=== PATIENT | female | born 1975 | race Two or more races ===

== ENCOUNTER 2016-10-05 11:18 | Inpatient (IN) | payer OTHER ==
[2016-10-05] MEDS ORDERED: CEFAZOLIN SODIUM 2 GRAM DUPLEX 2 G in Premix (D5W) 50 ml 1 EACH IV PRN (12:20)
--- NOTE | 2016-10-05 12:34 | PDOC36 ---
Provider Note Subject: cc: Admission H&P HPI: 40 y.o. year old CATHIE 10/15/2016, by Ultrasound at 38w4d. Presents for SROM at 1600 yesterday afternoon. REVIEW OF SYSTEMS GENERAL: No fever or headache EYES: No double or blurry vision. CARDIOVASCULAR: No chest pain. RESPIRATORY: No severe shortness of breath or cough. GASTROINTESTINAL: No nausea or vomiting or right upper quadrant pain. PSYCHIATRIC: No anxiety or depression. PROBLEMS Patient Active Problem List Diagnosis Date Noted False labor before 37 completed weeks of gestation 07/11/2016 Sinus congestion 07/04/2016 Round ligament pain 06/15/2016 Acute low back pain without sciatica 04/23/2016 Supervision of elderly multigravida in third trimester 04/02/2016 Maternal care due to low transverse uterine scar from previous delivery 04/02/2016 Joint pain 08/12/2015 Irritable bowel syndrome 07/23/2014 Pain in joint, lower leg 07/10/2013 BENITES (nonalcoholic steatohepatitis) 12/20/2011 Esophageal reflux 12/12/2011 Obesity, unspecified 02/21/2011 Adjustment disorder with anxious mood 10/10/2009 Restless legs syndrome (RLS) 10/10/2009 Depressive disorder, not elsewhere classified 08/29/2004 OB HISTORY #: 1, Date: 07/03/96, Sex: Male, Weight: 3.572 kg (7 lb 14 oz), GA: 40w0d, Delivery: , Low Transverse, Apgar1: None, Apgar5: None, Living: Yes, Comments: C/S because baby was too high #: 2, Date: 06/02/98, Sex: Male, Weight: 4.309 kg (9 lb 8 oz), GA: 40w0d, Delivery: Vaginal, Spontaneous Delivery, Apgar1: None, Apgar5: None, Living: Yes , Comments: None #: 3, Date: 05/27/01, Sex: Male, Weight: 4.026 kg (8 lb 14 oz), GA: 40w0d, Delivery: Vaginal, Spontaneous Delivery, Apgar1: None, Apgar5: None, Living: Yes , Comments: None #: 4, Date: 02/03/08, Sex: Male, Weight: 3.629 kg (8 lb), GA: 40w0d, Delivery: C -Section, Low Transverse, Apgar1: None, Apgar5: None, Living: Yes, Comments: None #: 5, Curent Dating: Based On CATHIE GA Dif Comments GA Cyc Lut BC Entered By Date Last Menstrual Period on 01/16/16 (Exact Date) 10/22/16 -1w0d Ary Neil MD 09/20/16 Ultrasound on 04/19/16 10/15/16 Working Dating 1 wk off, will change EDC. Diaz IUP. Breech. /Cardiac activity observed. Ant placenta. No previa. Fluid subjectively wnl. 14w3d Ary Neil MD 09/20/16 Ultrasound on 06/18/16 10/22/16 -1w0d Nl survey. Ant placenta. No previa. Nl fluid. 22w0d Ary Neil MD 09/20/16 Ultrasound on 09/20/16 10/19/16 -4d Vtx. Nl growth. Ant placenta. No previa. FANNIE wnl. 35w6d Ary Neil MD 09/20/16 Ultrasound on 10/04/16 10/15/16 Same FANNIE 13.28. Vtx 38w3d Ary Neil MD 10/04/16 PSH Past Surgical History Procedure Laterality Date Other surgical history Other [employer] Surgery: c/s Other surgical history Other past surgeries Appendectomy SOC HX reports that she has never smoked. She has never used smokeless tobacco. She reports that she does not drink alcohol or use illicit drugs. ALL Allergies Allergen Reactions Sumatriptan Imitrex (sumatriptan) Rxn:BREATHING DIFFICULTY; Note:swollen throat; Type:Drug ; Dt:03/10/2013; MEDICATIONS Current outpatient prescriptions: Cholecalciferol (VITAMIN D-3) 1000 UNITS capsule, Vitamin D3 (cholecalciferol ) 1000 intl units, oral capsule. OTC. 1 capsule Q DAY #100, 0 Refills. PAGE DOMINIC. Chronic, Disp: , Rfl: fluticasone (FLONASE) 50 MCG/ACT nasal spray, Administer 1 spray into each nostril once daily., Disp: 16 g, Rfl: 3 pantoprazole (PROTONIX) 40 MG EC tablet, Take 1 tablet (40 mg total) by mouth daily., Disp: 30 tablet, Rfl: 2 multivitamin (ULTRATABS) tablet, Take 1 tablet by mouth daily., Disp : 100 each, Rfl: 3 Pyridoxine HCl (VITAMIN B-6) 25 MG tablet, Take 1 tablet (25 mg total) by mouth 2 (two) times a day as needed (nausea)., Disp: 30 tablet, Rfl: 11 sertraline (ZOLOFT) 100 MG tablet, TAKE ONE TABLET BY MOUTH EVERY DAY, Disp: 90 tablet, Rfl: 1 SM ALLERGY RELIEF LORATADINE 10 MG tablet, TAKE ONE TABLET BY MOUTH EVERY DAY NEEDED, Disp: 100 tablet, Rfl: 6 SM SLEEP AID 25 MG tablet, TAKE 1 TABLET BY MOUTH AT BEDTIME NEEDED FOR NAUSEA, Disp: 30 tablet, Rfl: 3 Current facility-administered medications: sodium chloride 0.9 % infusion, 1,000 mL/hr, Intravenous, Continuous, Ary Neil MD, 1,000 mL/hr at 04/02/16 1608 PHYSICAL EXAMINATION VITAL SIGNS: T 98.7 BP 112/69 Estimated body mass index is 39.87 kg/(m^2) as calculated from the following: Height as of 10/04/16: 1.5 m (4' 11.06"). Weight as of 10/04/16: 89.7 kg (197 lb 12 oz). Total weight gain is 1.702 kg (3 lb 12 oz) FHT: 140's baseline, mod soy, + accels, no decels [place]: Intermittent SVE: deferred GENERAL: No distress CARDIOVASCULAR: Regular rate and rhythm, no murmur RESPIRATORY: Clear to auscultation bilaterally, respiratory effort is nonlabored at rest. GASTROINTESTINAL: Gravid no fundal tenderness LABS & STUDIES A+ Antibody- Rubella Immune Hep B- HIV- GC/Chlamydia- Trep- Hgb 10.9 GBS- not performed ASSESSMENT 40 y.o. year old CATHIE 10/15/2016, by Ultrasound at 38w4d presents for : SROM and planned rLTCS. PLAN Will proceed with repeat LTCS due to SROM. Discussed with patient risks for rLTCs including bleeding, infection and injury to surrounding structures including bladder, ureters, intestines, uterus, and vessels. patient is amenable to blood transfusion should this be necessary. All questions were responded to accordingly.
[2016-10-05] MEDS ORDERED: LACTATED RINGERS 1,000 ML ONE (12:49)
[2016-10-05] MEDS ORDERED: IV START KIT ONE (12:49)
[2016-10-05] MEDS ORDERED: CEFAZOLIN SODIUM 2 GRAM DUPLEX 50 ML IV ONE (12:50)
[2016-10-05] MEDS: LACTATED RINGERS 1,000 ML IV SCH ×3 (13:02→20:16)
[2016-10-05 14:01] VITALS: BMI 31.8
[2016-10-05 14:27] LABS: HEMATOCRIT 34.7 % (37.0-47.0); HEMOGLOBIN 11.1 gm/l (12.0-16.0); MEAN CELL VOLUME 88.7 fl (81.0-99.0); MEAN CORPUSCULAR HEMOGLOBIN 28.4 pg (27.0-31.0); RED CELL DISTRIBUTION WIDTH 16.6 % (11.5-14.5)
[2016-10-05] MEDS ORDERED: SPINAL PROCEDURAL TRAY 1 EACH ONE (16:01)
[2016-10-05] MEDS ORDERED: FENTANYL 100 MCG/2 ML VIAL ONE (16:06)
[2016-10-05] MEDS ORDERED: MORPHINE SULFATE (DURAMORPH) 1 MG/ML 10ML AMP ONE (16:06)
[2016-10-05] MEDS ORDERED: OXYTOCIN 10 UNITS/ML VIAL ONE (17:06)
[2016-10-05] MEDS ORDERED: ONDANSETRON 4 MG/2ML 2 ML VIAL ONE (17:12)
[2016-10-05] MEDS ORDERED: KETOROLAC TROMETHAMINE 30 MG/ML 1 ML VIAL ONE (17:41)
[2016-10-05] MEDS ORDERED: DIPHENHYDRAMINE HCL 25 MG CAPSULE PO PRN (18:01)
[2016-10-05] MEDS ORDERED: LANOLIN 50 APPLIC/7G TUBE TP PRN (18:01)
[2016-10-05] MEDS ORDERED: DIPHENHYDRAMINE HCL 50 MG/1 ML VIAL IV PRN ×2 (18:01→18:15)
[2016-10-05] MEDS ORDERED: OXYCODONE/ACETAMINOPHEN 5/325 MG TABLET PO PRN (18:01)
[2016-10-05] MEDS ORDERED: EPHEDRINE SULFATE 50 MG/ML 1ML VIAL IV PRN (18:15)
[2016-10-05] MEDS ORDERED: HYDROMORPHONE HCL 2 MG/ML SYRINGE IV PRN (18:15)
[2016-10-05] MEDS ORDERED: NALBUPHINE HCL 20 MG/ML AMP IV PRN (18:15)
[2016-10-05] MEDS ORDERED: KETOROLAC TROMETHAMINE 30 MG/ML 1 ML VIAL IV SCH (18:15)
[2016-10-05] MEDS ORDERED: HYDROMORPHONE HCL 1 MG/ML SYRINGE IV PRN (18:15)
[2016-10-05] MEDS ORDERED: NALOXONE HCL 0.4 MG/ML VIAL IV PRN (18:15)
[2016-10-05] MEDS ORDERED: ONDANSETRON 4 MG/2ML 2 ML VIAL IV PRN (18:15)
[2016-10-05] MEDS ORDERED: PROMETHAZINE HCL 25 MG/ML VIAL IM PRN (18:15)
[2016-10-05] MEDS: DOCUSATE SODIUM 100 MG CAPSULE PO SCH (21:16)
[2016-10-06] MEDS ORDERED: DIPHENHYDRAMINE HCL 50 MG/1 ML VIAL ONE (03:23)
[2016-10-06] MEDS: LACTATED RINGERS 1,000 ML IV SCH ×3 (03:26→19:30)
[2016-10-06] MEDS: KETOROLAC TROMETHAMINE 30 MG/ML 1 ML VIAL IV SCH ×2 (05:25→07:19)
[2016-10-06 06:46] LABS: HEMATOCRIT 29.1 % (37.0-47.0); HEMOGLOBIN 9.3 gm/l (12.0-16.0)
[2016-10-06] MEDS: DOCUSATE SODIUM 100 MG CAPSULE PO SCH ×3 (07:51→21:16)
[2016-10-06] MEDS: PRENATAL VIT/FE FUMARATE/FA 1 TABLET PO SCH ×2 (07:52→17:39)
[2016-10-06] MEDS: IBUPROFEN 800 MG TABLET PO PRN ×2 (14:38→21:16)
--- NOTE | 2016-10-06 16:05 | PDOC44 ---
- Subjective Day: 1 Reports Flatus, Reports Pain Tolerable, Reports , Reports Lochia Light, Reports Tolerating Regular Diet, Denies Nausea, Denies Vomiting - Objective Temp Pulse Resp BP Pulse Ox 98.1 F 97 18 92/51 96 10/06/16 07:47 10/06/16 07:47 10/06/16 07:47 10/06/16 07:47 10/05/16 18:36 Lab Results 10/06/16 10/05/16 05:58 13:02 WBC 8.5 RBC 3.91 L Hgb 9.3 L 11.1 L Hct 29.1 L 34.7 L Plt Count 197 10/05/16 13:02 MCHC 32.0 L RDW 16.6 H Current Medications Generic Name Dose Route Start Last Admin Trade Name Freq PRN Reason Stop Dose Admin Diphenhydramine HCl 25 - 50 mg 10/05/16 18:01 Benadryl PO Q6H PRN Itching (Mild/Moderate) Diphenhydramine HCl 25 - 50 mg 10/05/16 18:01 Benadryl IV Q6H PRN Itching (Severe) Diphenhydramine HCl 25 - 50 mg 10/05/16 18:15 10/06/16 03:26 Benadryl IV 10/06/16 16:43 50 mg Q4H PRN Administration Itching Docusate Sodium 100 mg 10/05/16 21:00 10/06/16 07:51 Colace PO 100 mg BID AZALEA Administration Emollient Ointment 1 applic 10/05/16 18:01 Lxz-L-Lffapn TP PRN PRN sore nipples Ephedrine Sulfate 5 - 10 mg 10/05/16 18:15 Ephedrine Sulfate IV 10/06/16 16:43 Q5M PRN Hydromorphone HCl 0.5 - 2 mg 10/05/16 18:15 10/05/16 20:24 Dilaudid IV 10/06/16 16:43 0.5 mg Q1H PRN Administration Pain (Breakthrough) Hydromorphone HCl 0.5 - 2 mg 10/05/16 18:15 Dilaudid IV 10/06/16 16:43 Q1H PRN Pain Lactated Ringer's 1,000 mls @ 125 mls/hr 10/05/16 18:30 10/06/16 03:26 Lactated Ringers IV 125 mls/hr .Q8H AZALEA Administration Ibuprofen 800 mg 10/06/16 17:00 Motrin PO Q6H PRN Pain Ketorolac Tromethamine 30 mg 10/06/16 17:00 Toradol IV 10/10/16 16:59 Q6H PRN Pain (Mild/Moderate) Ketorolac Tromethamine 30 mg 10/05/16 23:45 10/06/16 07:19 Toradol IV 10/06/16 16:43 Not Given Q6H AZALEA Multivi/Iron Carb/Fe Sulf/FA/Prenat 1 tab 10/06/16 09:00 10/06/16 07:52 Plus PO 1 tab DAILY AZALEA Administration Nalbuphine HCl 1 - 5 mg 10/05/16 18:15 Nubain IV 10/06/16 16:43 Q4H PRN Itching Naloxone HCl 0.2 - 0.4 mg 10/05/16 18:15 Narcan IV 10/06/16 16:43 Q5M PRN Ondansetron HCl 4 mg 10/05/16 18:15 Zofran IV 10/06/16 16:43 Q6H PRN Nausea/Vomiting Oxycodone/Acetaminophen 1 - 2 tab 10/05/16 18:01 Percocet 5/325 PO Q4H PRN Pain (Moderate) Promethazine HCl 6.25 - 12.5 mg 10/05/16 18:15 Phenergan IM 10/06/16 16:43 Q4H PRN Nausea/Vomiting Sodium Chloride 10 ml 10/05/16 18:01 10/06/16 05:26 Normal Saline 10ml Flush IV 10 ml PRN PRN Administration IV Flush Sodium Chloride 10 ml 10/06/16 01:00 10/06/16 05:36 Normal Saline 10ml Flush IV Not Given Q8HR [facility] - Physical Exam General: Afebrile, No Acute Distress Psych/Mental Status: Mood/Affect Appropriate, Bonding Well Neurological: Alert, Oriented x 4 Lungs: Clear to Auscultation Bilaterally Cardiovascular: Regular Rate and Rhythm Breast: Nipples Intact Fundus: Firm, Midline Extremities: Full ROM, No Edema, No Tenderness Skin: Normal Color, Warm, Dry, Intact, No Rash Wound METALLURGICAL SPECIALIST: Dressing Clean/Dry/Intact, Well Approximated - Problems:Assessment/Plan (1) Status post repeat low transverse section Status: AcuteAssessment/Plan: POD 1 after rC/S. Nl exam and vitals. +BF. -routine pp care (2) Anemia Qualifiers: Anemia type: iron deficiency Iron deficiency anemia type: unspecified iron deficiency Qualifier Code: (D50.9) Iron deficiency anemia, unspecified Status: AcuteAssessment/Plan: Will start BID iron supplementation tomorrow Disposition: Stable
--- NOTE | 2016-10-06 16:17 | PDOC37 ---
Procedure: Repeat Section Date of Procedure: 10/05/16 Start Time: 16:59 Preoperative Diagnosis: 1. 38 4/7 week intrauterine . 2. History of Cesarian Section x 2 3. Advanced Maternal Age Postoperative Diagnosis: Same Surgeon: Ary Neil MD Assist: Flavio Craven MD Indication for Procedure: 40 year old, at 38 weeks 4 days with history of 2 cesarian sections. Anesthesia: Spinal with Duramorph Complications: None Estimated Blood Loss: 900 mLs IV Fluids: 2000 mLs of LR Medications: 2 gm of Ancef for routine prophylaxis. 30 units of Pitocin. Urine Output: 150 mLs of clear urine Findings: Fluid clear. Three-prong adhesion noted to left anterior uterine wall and fundus and posterior uterine wall. Normal ovaries, and tubes. Procedure: The patient was taken to the operating room where a spinal anesthesia was placed. She was then prepared and draped in the normal sterile fashion in the dorsal supine position with a leftward tilt. The anesthesia was found to be adequate. A timeout was performed. A Pfannensteil skin incision was then made with the scalpel and carried through to the underlying layer of fascia with the scalpel. The fascia was incised in the midline and the incision extended laterally with the Chaudhary scissors. The superior aspect of the fascial incision was then grasped with the Holly clamps, elevated, and the underlying rectus muscles dissected off bluntly and sharply where needed. Attention was then turned to the inferior aspect of the incision which, in a similar fashion, was grasped, tented up with the Holly clamps, and the rectus muscle dissected off bluntly and sharply with Chaudhary scissors. The rectus muscles were then in the midline, and the peritoneum was identified and entered bluntly. The peritoneal incision was then extended with good visualization of the bladder. The bladder blade was then inserted and the lower uterine segment incised in a transverse fashion with the scalpel. The uterine incision was then extended laterally by pulling superolaterally on both sides. Membranes were ruptured and fluid was clear. The bladder blade was removed the infant's head was attempted to be flexed out of a transverse position unsuccessfully. A vacuum cup was applied to the infant's head making sure no tissue was grasped. The head was then delivered atraumatically with one pull and no pop off. The nose and mouth were suctioned with bulb suction and the cord was clamped and cut after 1 minute. The was handed off to the waiting staffing clerk. The placenta was then delivered with gentle cord traction. I was not able to exteriorize the uterus as a three-prong adhesion to the maternal left anterior wall of the uterus prevented this. One arm of the adehesion also extended over the fundus to the posterior uterine wall. The uterus was left in place and then cleared of all clots and debris. The uterine incision was repaired with 0 vicryl in a running, locked fashion. Hemostasis was excellent. The gutters were then cleared of all clots. A final look at the hysterotomy confirmed excellent hemostasis. The fascia was reapproximated with 0 Vicryl in a running fashion. The subcutaneous tissue was reapproximated with O-Vicryl in an interrupted fashion. The skin was closed with a Billy needle. The patient tolerated the procedure well. Sponge, lap and needle counts were correct times three. A debriefing was held at the end of the procedure with anesthesia and nursing staff. The patient was taken to the recovery room in stable condition.
[2016-10-06] MEDS ORDERED: KETOROLAC TROMETHAMINE 30 MG/ML 1 ML VIAL IV PRN (17:00)
[2016-10-06] MEDS ORDERED: IBUPROFEN 800 MG TABLET PO PRN (17:00)
[2016-10-07] MEDS: IBUPROFEN 800 MG TABLET PO PRN ×4 (04:44→22:59)
[2016-10-07] MEDS: PRENATAL VIT/FE FUMARATE/FA 1 TABLET PO SCH (10:45)
[2016-10-07] MEDS: DOCUSATE SODIUM 100 MG CAPSULE PO SCH ×2 (10:45→21:02)
--- NOTE | 2016-10-07 14:41 | PDOC44 ---
- Subjective Day: 2 Reports Flatus, Reports Pain Tolerable, Reports , Reports Lochia Light, Reports Tolerating Regular Diet, Denies Nausea, Denies Vomiting - Objective Temp Pulse Resp BP Pulse Ox 98.2 F 84 16 102/53 96 10/07/16 14:00 10/07/16 14:00 10/07/16 14:00 10/07/16 14:00 10/05/16 18:36 Current Medications Generic Name Dose Route Start Last Admin Trade Name Freq PRN Reason Stop Dose Admin Diphenhydramine HCl 25 - 50 mg 10/05/16 18:01 Benadryl PO Q6H PRN Itching (Mild/Moderate) Diphenhydramine HCl 25 - 50 mg 10/05/16 18:01 Benadryl IV Q6H PRN Itching (Severe) Docusate Sodium 100 mg 10/05/16 21:00 10/07/16 10:45 Colace PO 100 mg BID AZALEA Administration Emollient Ointment 1 applic 10/05/16 18:01 10/07/16 04:59 Ohp-X-[id number] TP 1 tube PRN PRN Administration sore nipples Ibuprofen 800 mg 10/06/16 14:32 10/07/16 10:45 Motrin PO 800 mg Q6H PRN Administration Pain Ketorolac Tromethamine 30 mg 10/06/16 17:00 Toradol IV 10/10/16 16:59 Q6H PRN Pain (Mild/Moderate) Multivi/Iron Carb/Fe Sulf/FA/Prenat 1 tab 10/06/16 09:00 10/07/16 10:45 Plus PO 1 tab DAILY AZALEA Administration Oxycodone/Acetaminophen 1 - 2 tab 10/05/16 18:01 10/06/16 13:20 Percocet 5/325 PO 2 tab Q4H PRN Administration Pain (Moderate) Sodium Chloride 10 ml 10/05/16 18:01 10/06/16 05:26 Normal Saline 10ml Flush IV 10 ml PRN PRN Administration IV Flush Sodium Chloride 10 ml 10/06/16 01:00 10/07/16 14:04 Normal Saline 10ml Flush IV 10 ml Q8HR AZALEA Administration - Physical Exam General: Afebrile, No Acute Distress Psych/Mental Status: Mood/Affect Appropriate, Bonding Well Neurological: Alert, Oriented x 4 Lungs: Clear to Auscultation Bilaterally Cardiovascular: Regular Rate and Rhythm Breast: Nipples Intact Fundus: Firm, Midline Extremities: Full ROM, No Edema, No Tenderness Skin: Normal Color, Warm, Dry, Intact, No Rash 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 Nl exam and vitals. +BF. -routine pp care (2) Anemia Qualifiers: Anemia type: iron deficiency Iron deficiency anemia type: unspecified iron deficiency Qualifier Code: (D50.9) Iron deficiency anemia, unspecified Status: AcuteAssessment/Plan: Will start BID iron supplementation. Disposition: Stable, Anticipate DC Home Tomorrow
[2016-10-07] MEDS: FERROUS SULFATE (65 Fe) 325 MG TABLET PO SCH ×2 (21:02→21:03)
[2016-10-08] MEDS: IBUPROFEN 800 MG TABLET PO PRN (06:21)
[2016-10-08 09:33] VITALS: BP 116/67
--- NOTE | 2016-10-08 09:35 | PDOC39B ---
Hospital Course: ADMIT DATE: 10/05/16 DISCHARGE DATE: 10/08/16 ADMISSION DIAGNOSES: Term AMA History of Section x 2 Depression PROCEDURES/EVENTS: Repeat Low Transverse Section HOSPITAL COURSE: The patient is a 40 year old, at 38 weeks 4 days with history of 2 cesarian sections who was admitted on 10/05/[address] Neil performed a repeat LTCS without complication and EBL of 900 mL. Hgb went from 11.1 9.3 and the patient was started on ferrous sulfate 325 mg po bid. Otherwise, her postoperative course was uncomplicated. By the day of discharge the patient was ambulating, eating, voiding, and passing flatus without difficulty. Pain controlled and lochia appropriate. She is . She is undecided regarding control. Pediatric provider is [facility]. - Physical Exam Vital Signs: Temp Pulse Resp BP Pulse Ox 98.2 F 78 18 103/60 96 10/08/16 02:54 10/08/16 02:54 10/08/16 02:54 10/08/16 02:54 10/05/16 18:36 General: Afebrile Psych/Mental Status: Bonding Well Neurological: Grossly Intact, Oriented x 4 Lungs: Clear to Auscultation Bilaterally Cardiovascular: Regular Rate and Rhythm Fundus: Firm, Below Umbilicus Skin: Normal Color Wound: Well Approximated - Discharge Diagnosis (1) Anemia Qualifiers: Anemia type: iron deficiency Iron deficiency anemia type: unspecified iron deficiency Qualifier Code: (D50.9) Iron deficiency anemia, unspecified Status: AcuteAssessment/Plan: Currently on ferrous sulfate 325 mg po bid (2) Status post repeat low transverse section Status: AcuteAssessment/Plan: POD#3 after Repeat C/S. Nl exam and vitals. +BF. OK to discharge today - Discharge Plan Condition: Stable Disposition: Home Prescriptions: Sucralfate [CARAFATE 1 GRAM TABLET (SHF)] 2 g PO BID #60 tab Docusate Sodium [COLACE 100 MG CAPSULE (SHF)] 100 mg PO BID #60 Ibuprofen [IBUPROFEN 800 MG TABLET (SHF)] 800 mg PO Q6H PRN #60 PRN Reason: Pain FERROUS SULFATE (65 Fe) [IRON FERROUS SULFATE 325 MG TABLET (SHF)] 325 mg PO BID #60 Oxycodone HCl/Acetaminophen [PERCOCET 5/325 MG TABLET (SHF)] 1 - 2 tab PO Q4H PRN #30 PRN Reason: Pain (Moderate) Pnv95/Ferrous Fumarate/FA [ Vitamin Tablet] 1 each PO DAILY #30 Follow-Up: Ary Neil MD [Primary Care Provider] - In 7-10 days (post c section check)
[2016-10-08] MEDS: PRENATAL VIT/FE FUMARATE/FA 1 TABLET PO SCH (10:57)
[2016-10-08] MEDS: DOCUSATE SODIUM 100 MG CAPSULE PO SCH (10:57)
[2016-10-08] MEDS: FERROUS SULFATE (65 Fe) 325 MG TABLET PO SCH (10:57)
== END 2016-10-08 12:51 | disposition home or self-care (01) | DRG 766 ==
LOC: FBCOUT 11:18 → FBC 11:19 → FBCOUT 12:19
PROVIDERS: ADMIT Family Medicine; ATTEND Family Medicine
PROC: 10D00Z1 Extraction of Products of Conception, Low, Open Approach (ICD-10-PCS; principal; 2016-10-05)
DX: O34.211 Maternal care for low transverse scar from previous cesarean delivery (principal); O09.523 Supervision of elderly multigravida, third trimester; O99.02 Anemia complicating childbirth; D50.9 Iron deficiency anemia, unspecified; Z3A.38 38 weeks gestation of pregnancy; Z37.0 Single live birth; O99.344 Other mental disorders complicating childbirth; F32.9 Major depressive disorder, single episode, unspecified